=== PATIENT | female | born 1985 | race Caucasian/White ===

== ENCOUNTER 2023-05-10 09:43 | Day surgery (SDC) | payer OTHER ==
[~2023-05-10] VITALS: Ht 157.5 cm; Wt 129.7 kg
[2023-05-10] MEDS ORDERED: MIDAZOLAM 2 MG/2 ML VIAL ONE (10:31)
[2023-05-10] MEDS ORDERED: fentaNYL citrate 0.05 MG/ML VIAL ONE (10:32)
[2023-05-10] MEDS: fentaNYL citrate 0.05 MG/ML VIAL IVP ONE (10:45)
[2023-05-10] MEDS: LIDOCAINE 2% 100 MG/5 ML UJET TP ONE (10:50)
== END 2023-05-10 11:45 | disposition home or self-care (01) ==
LOC: MOR 09:43 → MMU 09:45 → MOR 11:45
PROVIDERS: ATTEND Internal Medicine Gastroenterology
DX: K62.5 Hemorrhage of anus and rectum (principal); K57.30 Diverticulosis of large intestine without perforation or abscess without bleeding; I10 Essential (primary) hypertension; E03.9 Hypothyroidism, unspecified; E78.5 Hyperlipidemia, unspecified; Z98.891 History of uterine scar from previous surgery; Z90.49 Acquired absence of other specified parts of digestive tract; Z80.0 Family history of malignant neoplasm of digestive organs; Z79.899 Other long term (current) drug therapy; Z98.890 Other specified postprocedural states
CPT/HCPCS: 45378; J3010; J2250